=== PATIENT | male | born 1955 | race African-American/Black ===

== ENCOUNTER 2023-09-29 19:51 | Emergency (ER) | payer MEDICAID, OTHER ==
[~2023-09-29] VITALS: Ht 175.3 cm; Wt 95.5 kg
[2023-09-29 20:03] VITALS: TEMP 98.8; O2SAT 96
[2023-09-29] MEDS ORDERED: MORPHINE SULFATE 4 MG/ML CPJ (NOT FOR IM USE) IV ONE (20:30)
[2023-09-29] MEDS ORDERED: ONDANSETRON HCL 4MG/2ML INJ IV ONE (20:30)
[2023-09-29] MEDS ORDERED: KETOROLAC 30MG/ML VIAL IV ONE (20:45)
[2023-09-29 21:17] LABS: BASOPHILS % 0.3 % (0.0-2.0); EOSINOPHILS % 0.4 % (0.0-5.0); HEMATOCRIT. 37.7 % (42.0-52.0); HEMOGLOBIN. 12.4 g/dL (14.0-18.0); LYMPHOCYTES % 17.3 % (20.0-50.0); MEAN CORPUSCULAR HEMOGLOBIN 29.3 pg (28.0-32.0); MEAN CORPUSCULAR HGB CONC 32.9 g/dL (31.0-37.0); MEAN PLATELET VOLUME 8.3 fl (7.4-10.4); MONOCYTES % 6.8 % (2.0-8.0); NEUTROPHILS % 75.2 % (40.0-76.0); PLATELET 238 x1000/uL (130-400); RED BLOOD CELL COUNT 4.24 mill/uL (4.7-6.1); RED CELL DISTRIBUTION WIDTH 13.6 % (11.6-14.6)
[2023-09-29 21:23] LABS: CHLORIDE 109 mEq/L (98-107); INDEX HEMOLYSI 1 (1-3); INDEX ICTERIC 1 (1-4); INDEX LIPEMIC 1 (1-3); POTASSIUM 4.1 mEq/L (3.5-5.1); SODIUM 140 mEq/L (136-145)
[2023-09-29 21:26] LABS: PROTHROMBIN TIME 10.5 sec (9.6-11.0)
[2023-09-29 21:33] LABS: ALANINE AMINOTRANSFERASE 21 IU/L (13-61); ALBUMIN 3.4 g/dL (3.4-5.0); ASPARTATE AMINOTRANSFERASE 18 IU/L (15-37); BILIRUBIN TOTAL 0.5 mg/dL (0.1-1.0); CALCIUM 8.4 mg/dL (8.5-10.1); CARBON DIOXIDE 28 mEq/L (21-32); CREATININE 0.7 mg/dL (0.6-1.3); GLUCOSE 94 mg/dL (70-105); PROTEIN TOTAL 6.7 g/dL (6.0-8.3); UREA NITROGEN BLOOD 6 mg/dL (7-21)
[2023-09-29 23:17] LABS: CLARITY URINE CLEAR (CLEAR); COLOR URINE YELLOW (YELLOW); GLUCOSE URINE NEGATIVE (NEGATIVE); KETONES URINE NEGATIVE (NEGATIVE); LEUKOCYTE ESTERASE URINE NEGATIVE (NEGATIVE); NITRITE URINE NEGATIVE (NEGATIVE); OCCULT BLOOD URINE NEGATIVE (NEGATIVE); PH URINE 6.5 (4.5-8.0); PROTEIN URINE NEGATIVE (NEGATIVE)
[2023-09-30] MEDS ORDERED: ACET-2708 MT (01:07)
[2023-09-30 01:26] VITALS: BP 118/61; PULSE 72; RESP 16
== END 2023-09-30 01:27 | disposition home or self-care (01) ==
LOC: ER 19:51
DX: R10.9 Unspecified abdominal pain (principal); E66.01 Morbid (severe) obesity due to excess calories
CPT/HCPCS: 80053; 81003; 83690; 85025; 85610; 36415; 74176; 96374; 96375; 99285; J1885; J2405; Z7610 ×2

== ENCOUNTER 2024-02-23 12:22 | Emergency (ER) | payer MEDICAID, OTHER ==
[~2024-02-23] VITALS: Ht 175.3 cm; Wt 82.0 kg
[~2024-02-23 12:22] MED LIST: ACET-2708 MT
[2024-02-23 12:24] VITALS: TEMP 98.3; O2SAT 100
[2024-02-23] MEDS: ONDANSETRON HCL 4MG/2ML INJ IV STA (12:47)
[2024-02-23] MEDS: PANTOPRAZOLE SODIUM 40 MG/VIAL IV STA (12:47)
[2024-02-23] MEDS: FAMOTIDINE 20MG/2ML VIAL IV STA (12:47)
[2024-02-23 13:26] LABS: BASOPHILS % 0.2 % (0.0-2.0); HEMATOCRIT. 44.2 % (42.0-52.0); HEMOGLOBIN. 14.4 g/dL (14.0-18.0); LYMPHOCYTES % 16.2 % (20.0-50.0); MEAN CORPUSCULAR HEMOGLOBIN 28.9 pg (28.0-32.0); MEAN CORPUSCULAR HGB CONC 32.5 g/dL (31.0-37.0); MEAN CORPUSCULAR VOLUME 88.7 fL (80.0-94.0); MEAN PLATELET VOLUME 8.1 fl (7.4-10.4); MONOCYTES % 2.3 % (2.0-8.0); NEUTROPHILS % 81.3 % (40.0-76.0); PLATELET 240 x1000/uL (130-400); RED BLOOD CELL COUNT 4.98 mill/uL (4.7-6.1); RED CELL DISTRIBUTION WIDTH 13.6 % (11.6-14.6)
[2024-02-23 13:41] LABS: PROTHROMBIN TIME 10.9 sec (9.6-11.0)
[2024-02-23 13:51] LABS: ALANINE AMINOTRANSFERASE 18 IU/L (10-49); ALBUMIN 4.6 g/dL (3.2-4.8); ASPARTATE AMINOTRANSFERASE 24 IU/L (<34); BILIRUBIN TOTAL 0.6 mg/dL (0.1-1.0); CALCIUM 9.2 mg/dL (8.7-10.4); CARBON DIOXIDE 24 mEq/L (21-32); CHLORIDE 103 mEq/L (98-107); CREATININE 0.7 mg/dL (0.6-1.3); GLUCOSE 109 mg/dL (70-105); POTASSIUM 3.8 mEq/L (3.5-5.1); PROTEIN TOTAL 7.4 g/dL (6.0-8.3); SODIUM 134 mEq/L (136-145); UREA NITROGEN BLOOD 7 mg/dL (9-23)
[2024-02-23] MEDS: SODIUM CHLORIDE 0.9% 1,000 ML IV ONE (13:52)
[2024-02-23 13:55] LABS: ETHANOL BLOOD < 10 mg/dL (<10)
[2024-02-23 14:35] LABS: CLARITY URINE CLEAR (CLEAR); COLOR URINE YELLOW (YELLOW); GLUCOSE URINE NEGATIVE (NEGATIVE); KETONES URINE NEGATIVE (NEGATIVE); LEUKOCYTE ESTERASE URINE NEGATIVE (NEGATIVE); NITRITE URINE NEGATIVE (NEGATIVE); OCCULT BLOOD URINE NEGATIVE (NEGATIVE); PH URINE 8.5 (4.5-8.0); PROTEIN URINE NEGATIVE (NEGATIVE); SPECIFIC GRAVITY URINE 1.015 (1.005-1.030)
[2024-02-23] MEDS: IOHEXOL-300 100 ML BOTTLE ONE (16:01)
[2024-02-23] MEDS ORDERED: ONDA4TAB11 PO (17:38)
[2024-02-23] MEDS ORDERED: FAMO-135 MT (17:38)
[2024-02-23 18:07] VITALS: BP 130/57; PULSE 69; RESP 18
[2024-02-23] MEDS ORDERED: IOHEXOL-300 100 ML BOTTLE ONE (23:46)
== END 2024-02-23 18:13 | disposition home or self-care (01) ==
LOC: ER 12:22
DX: R11.2 Nausea with vomiting, unspecified (principal); K76.89 Other specified diseases of liver; Z98.890 Other specified postprocedural states
CPT/HCPCS: 80053; 81003; 80320; 83690; 85025; 85610; 36415; 74177; 96365; 96366; 96375; 99285; Q9967; J3490; J2405; C9113; J7030; G0480

== ENCOUNTER 2025-01-23 12:48 | Emergency (ER) | payer OTHER ==
[~2025-01-23] VITALS: Ht 172.7 cm; Wt 78.0 kg
[~2025-01-23 12:48] MED LIST changes: -ACET-2708 MT; +ASPI-1406 PO; +BUPR-553 MT; +CHLO200T20 MT; +DIVA-75 MT; +DOCU-422 MT; +FAMO-135 MT; +LIP40 PO; +LORA10TA7 PO
[2025-01-23 12:49] VITALS: O2SAT 99
[2025-01-23 12:52] VITALS: BP 136/44; PULSE 89; RESP 16; TEMP 37.2; O2SAT 100
[2025-01-23] MEDS: LIDOCAINE HCL/PF 1% 10 MG/ML 5ML VIAL INFIL ONE (13:38)
[2025-01-23] MEDS: BACITRACIN ZINC OINT UDPKT TOP ONE (13:38)
[2025-01-23] MEDS ORDERED: AMOX1TAB16 MT (14:50)
== END 2025-01-23 15:10 | disposition home or self-care (01) ==
LOC: ER 12:48
DX: M27.2 Inflammatory conditions of jaws (principal); Z79.82 Long term (current) use of aspirin; Z79.899 Other long term (current) drug therapy
CPT/HCPCS: 41800; 99284; J2003; Z7610 ×2; 99283